=== PATIENT | female | born 1985 ===

== ENCOUNTER 2019-01-25 05:34 | Emergency (ER) | payer OTHER ==
[2019-01-25 06:23] VITALS: O2SAT 99
--- NOTE | 2019-01-25 08:08 | ED PDOC ---
History of Present Illness History of Present Illness: 33 year old female with no past medical history who is presenting to the ED for evaluation of fever, headache and body aches ongoing since 3 pm yesterday. Patient also states that she is having abdominal discomfort and reports 1 episode of vomiting last night. She admits that she did not get the flu shot this season and denies any diarrhea, sore throat, or cough. Patient offers no other medical complaints at this time. PMD: none provided HPI: Influenza Time Seen by Provider: 01/25/19 07:12 Chief Complaint: Abdominal Pain Chief Complaint (Provider): Flu-Like Symptoms History Per: Patient Exam Limitations: no limitations Onset/Duration Of Symptoms: Days (x1) Symptoms include: fever, headache, bodyaches, vomiting. denies: sore throat, cough, diarrhea Past Medical History Reviewed: Historical Data, Nursing Documentation, Vital Signs Vital Signs: Last Vital Signs Temp 99.4 F 01/25/19 06:21 Pulse 81 01/25/19 06:21 Resp 18 01/25/19 06:21 BP 112/71 01/25/19 06:21 Pulse Ox 99 01/25/19 06:21 - Medical History PMH: No Chronic Diseases - Surgical History Surgical History: No Surg Hx - Family History Family History: States: Unknown Family Hx - Social History Current smoker - smoking cessation education provided: No Alcohol: Social Drugs: Denies - Allergies Allergies/Adverse Reactions: Allergies Allergy/AdvReac Type Severity Reaction Status Date / Time No Known Allergies Allergy Verified 01/25/19 06:57 Review of Systems ROS Statement: Except As Marked, All Systems Reviewed And Found Negative Constitutional: Positive for: Fever, Other (body aches ) ENT: Negative for: Throat Pain Respiratory: Negative for: Cough Gastrointestinal: Positive for: Vomiting, Abdominal Pain. Negative for: Diarrhea Neurological: Positive for: Headache Physical Exam - Reviewed Nursing Documentation Reviewed: Yes Vital Signs Reviewed: Yes - Physical Exam Appears: Positive for: Non-toxic, No Acute Distress Head Exam: Positive for: ATRAUMATIC, NORMAL INSPECTION, NORMOCEPHALIC Skin: Positive for: Normal Color, Warm, DRY Eye Exam: Positive for: EOMI, Normal appearance, PERRL ENT: Positive for: Normal ENT Inspection. Negative for: Pharyngeal Erythema, Tonsillar Exudate Cardiovascular/Chest: Positive for: Regular Rate, Rhythm. Negative for: Murmur Respiratory: Positive for: Normal Breath Sounds. Negative for: Respiratory Distress Gastrointestinal/Abdominal: Positive for: Normal Exam, Soft. Negative for: Tenderness, Distended, Guarding, Rebound Extremity: Positive for: Normal ROM. Negative for: Deformity, Swelling Neurological/Psych: Positive for: Awake, Alert, Normal Tone, Oriented. Negative for: Motor/Sensory Deficits Medical Decision Making Medical Decision Making: Time: 8:04 Impression: body aches r/o flu, r/o viral illness Plan: --Tylenol 650 mg PO --Rapid Strep --Influenza A B 9:35 Patient states that she is feeling better and is stable in the ED at this time. reexamination of abdomen again demonstrates non tender. pt tolerated po. She will be discharged home with recommended followup with Clinic \\ Scribe Attestation: Documented by Melly Jeffries, acting as a scribe for Tala Thomas MD. Provider Scribe Attestation: All medical record entries made by the Scribe were at my direction and personally dictated by me. I have reviewed the chart and agree that the record accurately reflects my personal performance of the history, physical exam, medical decision making, and the department course for this patient. I have also personally directed, reviewed, and agree with the discharge instructions and disposition. - ECG O2 Sat by Pulse Oximetry: 99 (RA) Pulse Ox Interpretation: Normal Disposition - Clinical Impression Clinical Impression: Generalized body aches - Patient ED Disposition Is Patient to be Admitted: No Counseled Patient/Family Regarding: Studies Performed, Diagnosis, Need For Followup - Disposition Referrals: [facility] [Outside] [facility] [Outside] Disposition: Routine/Home Disposition Time: 09:35 Condition: IMPROVED Additional Instructions: follow up with the clinic in 2 days for reevaluation take tylenol for pain as needed return to the ED with any worsening or concerning symptoms or if symptoms dont go away in 2 days Instructions: Muscle and Bone Pain (DC) Forms: [facility] (Guyanese), [facility] School/Work Excuse
[2019-01-25] MEDS ORDERED: Sodium Chloride 0.9% 1,000 ML IV STA (09:31)
[2019-01-25 09:40] VITALS: BP 100/63; PULSE 80; RESP 16; TEMP 98.5
== END 2019-01-25 09:54 | disposition home or self-care (01) ==
LOC: H.ER 05:34
DX: M79.18 Myalgia, other site (principal)